=== PATIENT | male | born 1960 | race Caucasian/White ===

== ENCOUNTER → 2021-12-06 | Outpatient (CLI) | payer OTHER ==
[~2021-12-06] MED LIST: ALLEGRA ALLERGY60 MG PO; ALPRAZOLAM0.5 MG PO; BENTYL 10MG CAP10 MG PO; BENTYL 20MG TAB20 MG PO; KLOR-CON 1010 MEQ PO; LAMICTAL TAB 2525 MG PO; LASIX20 MG PO; LIPITOR TAB 1010 MG PO; MICROZIDE12.5 MG PO; NASONEX SPRAY 117 GM; NEURONTIN 300300 MG PO; NORVASC10 MG PO; PERCOCET 10-321 EACH PO; PHENERGAN 25 MG25 M1 PO; PROTONIX40 MG PO; ZOFRAN4 MG PO
== END ==
LOC: EXRD 09:32
DX: R07.81 Pleurodynia (principal)
CPT/HCPCS: 71111